=== PATIENT | male | born 1970 | race Caucasian/White ===

== ENCOUNTER 2020-04-18 20:06 | Emergency (ER) | payer OTHER ==
[~2020-04-18] VITALS: Ht 175.3 cm; Wt 72.6 kg
[2020-04-18] MEDS ORDERED: LEVO150T PO (20:19)
[2020-04-18] MEDS ORDERED: TESTOSTERONE (20:19)
--- NOTE | 2020-04-18 20:22 | NUR ---
Dr. Lutz at bedside for MSE.
--- NOTE | 2020-04-18 20:30 | NUR ---
Xray at bedside.
--- NOTE | 2020-04-18 20:51 | NUR ---
Patient discharged to home in stable condition. Written and verbal after care instructions given. Patient verbalizes understanding of instructions. Stressed follow up or return to ER for worsening s/s. Patient ambulated out of ER with steady gait, no acute signs of distress, VSS, all belongings taken, provided with a CD and summary of Xray results.
[2020-04-18 20:52] VITALS: BP 132/86
== END 2020-04-18 21:36 | disposition home or self-care (01) ==
LOC: ER 20:09
DX: S52.502A Unspecified fracture of the lower end of left radius, initial encounter for closed fracture (principal); V18.4XXA Pedal cycle driver injured in noncollision transport accident in traffic accident, initial encounter; Y93.55 Activity, bike riding; Y92.89 Other specified places as the place of occurrence of the external cause; E89.0 Postprocedural hypothyroidism; Z79.890 Hormone replacement therapy; Z85.850 Personal history of malignant neoplasm of thyroid
CPT/HCPCS: 73110; A4663